=== PATIENT | male | born 1945 | race Caucasian/White ===

== ENCOUNTER 2024-04-17 10:32 | Day surgery (SDC) | payer OTHER ==
[~2024-04-17] VITALS: Ht 175.3 cm; Wt 102.3 kg
[~2024-04-17 10:32] MED LIST: LR 1,000 ML IV SCH
[2024-04-17 11:14] VITALS: BP 170/83; PULSE 80; TEMP 98
--- NOTE | 2024-04-17 11:30 | NUR ---
The patient ambulated back to [facility] independently using a steady gait and appeared to tolerate the activity well. Vital signs obtained. Consent signed. 18G IV started in left hand with one stick, LR infusing without difficulty. Assessment completed. Home medications reconcilled. Warm blanket provided. Son, Sameer, brought back to be at his bedside. The patient denies any further needs at this time.
[2024-04-17] MEDS ORDERED: XALATAN EYE DROPS OD (11:33)
[2024-04-17] MEDS ORDERED: PEPCID AC 10MG10 MG PO (11:33)
[2024-04-17] MEDS ORDERED: BETIMOL 0.5% OPH5 ML OD (11:33)
[2024-04-17] MEDS ORDERED: ZYRTEC 10MG10 MG PO (11:34)
[2024-04-17] MEDS ORDERED: Ondansetron 4 MG/2 ML VIAL ONE (12:05)
[2024-04-17] MEDS ORDERED: Lidocaine PF 2% (20 MG/ML) 5 ML VIAL ONE (12:05)
[2024-04-17] MEDS ORDERED: dexAMETHasone 10 MG/ML VIAL ONE (12:05)
[2024-04-17] MEDS ORDERED: Topical Skin Adhesive 1 EACH (1 ML) TOP ONE (13:38)
[2024-04-17] MEDS ORDERED: BUPivacaine PF 0.5% w EPI (1:200,000) 10 ML VIAL IJ ONE ×2 (13:38)
[2024-04-17] MEDS ORDERED: Lidocaine PF 2% (20 MG/ML) 10 ML POLY AMP IJ ONE (13:38)
[2024-04-17] MEDS ORDERED: Ketorolac 30 MG/ML VIAL ONE (13:43)
[2024-04-17] MEDS ORDERED: fentaNYL 50 MCG/ML 1 ML SYRINGE/VIAL [PACU/SDC ONLY] IV PRN (14:15)
[2024-04-17] MEDS ORDERED: Ondansetron 4 MG/2 ML VIAL IV PRN ×2 (14:15→14:30)
[2024-04-17] MEDS ORDERED: HYDROmorphone 1 MG/1 ML SYRINGE [PACU/SDC ONLY] IV PRN (14:15)
[2024-04-17] MEDS ORDERED: hydrALAZINE 20 MG/ML 1 ML VIAL IV PRN (14:15)
[2024-04-17] MEDS ORDERED: MOTRIN 600600 MG/TAB PO (14:24)
[2024-04-17] MEDS ORDERED: Morphine 4 MG/ML VIAL IV PRN (14:30)
[2024-04-17 14:40] VITALS: BP 152/88; PULSE 66
[2024-04-17 14:53] VITALS: TEMP 96.9
[2024-04-17 14:55] VITALS: BP 153/90; PULSE 59
--- NOTE | 2024-04-17 15:23 | NUR ---
1440- THIS RN RECIEVED REPORT FROM ROMAN KIRKPATRICK. PT BACK FROM PACU, MONITORS ON PLACE AND VS OBTAINED. BP ELEVATED, AT PREOP BASELINE. WATER GIVEN TO PT. NO COMPLAINTS OF [place] OR PAIN. 1455- VS OBTAINED. TOLERATING WATER WELL. 1500- IV REMOVED PER ORDER. 1505- DISCHARGE TEACHING DONE WITH PT AND SON AT BEDSIDE. VERBALIZED UNDERSTANDING AND NO QUESTIONS AT THIS TIME. 1515- PT DISCHARGED FROM HOSPITAL VIA WHEELCHAIR TO PRIVATE VEHICLE DRIVEN BY EVANS OLSON.
== END 2024-04-17 15:15 ==
LOC: SDCO 10:32
DX: K42.9 Umbilical hernia without obstruction or gangrene (principal)
CPT/HCPCS: C1781; J0690; J1100; J1885; J2405; J2704; J7120